=== PATIENT | female | born 1980 | race Caucasian/White ===

== ENCOUNTER 2019-01-21 21:13 | Emergency (ER) | payer OTHER ==
[~2019-01-21] VITALS: Ht 165.1 cm; Wt 86.2 kg
[~2019-01-21 21:13] MED LIST: ALEVE220 MG PO; AMOXICILLIN500 MG PO; AUGMENTIN 875875 MG PO; NKHM; ROBITUSSIN DM120 ML PO; VICO75300 PO; ZITHROMAX Z PA250 MG PO
[2019-01-21] MEDS ORDERED: CEPHALEXIN500 M1 PO (22:24)
== END 2019-01-22 01:30 | disposition home or self-care (01) ==
LOC: ED 21:13
DX: S00.451A Superficial foreign body of right ear, initial encounter (principal); W49.04XA Ring or other jewelry causing external constriction, initial encounter; Y93.89 Activity, other specified; Y92.89 Other specified places as the place of occurrence of the external cause; Y99.8 Other external cause status

== ENCOUNTER → 2020-11-19 | Outpatient (CLI) | payer OTHER ==
[~2020-11-19] MED LIST changes: +CEPHALEXIN500 M1 PO
== END | disposition home or self-care (01) ==
LOC: COVID19 15:48
PROVIDERS: ATTEND Internal Medicine
DX: U07.1 COVID-19 (principal)